=== PATIENT | male | born 1970 | race Two or more races ===

== ENCOUNTER 2019-10-29 20:55 | Inpatient (IN) | payer MEDICAID ==
[~2019-10-29] VITALS: Ht 165.1 cm; Wt 75.7 kg
--- NOTE | 2019-10-29 21:10 | NUR ---
PT BIBF C/O L SIDED PRESSURE CHEST PAIN RADIATING TO L SHOULDER X 3 DAYS. 08/29 PS. +SOB. PT AAOX4, VSS, RESPIRATIONS EVEN AND UNLABORED ON RA W/ NAD NOTED. PT CONNECTED TO THE COLLAR SHAPER OPERATOR AND POX.
--- NOTE | 2019-10-29 21:19 | NUR ---
BLOOD COLLECTED AND SENT TO LAB
[2019-10-29 21:21] LABS: BASOPHILS % (AUTO) 0.7 % (0.0-2.0); EOSINOPHILS % (AUTO) 1.7 % (0.0-6.0); HEMATOCRIT 47 % (39-51); HEMOGLOBIN 16.2 g/dL (13.5-17.5); LYMPHOCYTES # (AUTO) 2.2 /CMM (0.8-4.8); LYMPHOCYTES % (AUTO) 30.9 % (20.0-44.0); MEAN CORPUSCULAR HGB CONC 34 g/dl (31.0-36.0); MEAN CORPUSCULAR VOLUME 89 fL (80-96); MONOCYTES # (AUTO) 0.5 /CMM (0.1-1.30); MONOCYTES % (AUTO) 7.3 % (2.0-12.0); NEUTROPHILS # (AUTO) 4.3 /CMM (1.8-8.9); NEUTROPHILS % (AUTO) 59.4 % (43.0-81.0); PLATELET COUNT (AUTO) 219 /CMM (150-450); RED BLOOD CELL COUNT(AUTO) 5.29 MIL/uL (4.5-6.0); WHITE BLOOD COUNT (AUTO) 7.2 K/uL (4.3-11.0)
[2019-10-29] MEDS ORDERED: NITROGLYCERIN 0.4 MG/TAB BOTTLE ONE (21:26)
[2019-10-29] MEDS ORDERED: NITROGLYCERIN 0.4 MG/TAB BOTTLE SL ONE (21:30)
[2019-10-29 21:44] LABS: ALANINE AMINOTRANSFERASE 33 U/L (12-78); ALBUMIN 4.1 g/dL (3.4-5.0); ALKALINE PHOSPHATASE 49 U/L (46-116); ASPARTATE AMINOTRANSFERASE 20 U/L (15-37); B-TYPE NATRIURETIC PEPTIDE 51 PG/ML (0-125); BILIRUBIN,TOTAL 0.5 mg/dL (0.2-1.0); CALCIUM, SERUM 9.1 mg/dL (8.5-10.1); CARBON DIOXIDE 30 mmol/L (21-32); CHLORIDE 104 mmol/L (98-107); CREATININE 0.9 mg/dL (0.6-1.3); GLUCOSE 122 mg/dL (74-106); LIPASE 185 U/L (73-393); POTASSIUM 3.1 mmol/L (3.5-5.1); SODIUM SERUM 142 mmol/L (136-145); TOTAL PROTEIN, SERUM 7.4 g/dL (6.4-8.2); UREA NITROGEN, BLOOD 11 mg/dL (7-18)
--- NOTE | 2019-10-29 21:48 | NUR ---
PT UNRELIEVED W/ [address] NOLEN MADE AWARE
[2019-10-29] MEDS ORDERED: ONDANSETRON HCL/PF 4 MG/2 ML VIAL ONE (21:51)
[2019-10-29] MEDS ORDERED: POTASSIUM CHLORIDE 20 MEQ TAB.PRT.SR PO ONE (22:00)
[2019-10-29] MEDS ORDERED: MORPHINE SULFATE INJ 2 MG/ML DISP.SYRIN IV ONE (22:00)
[2019-10-29] MEDS ORDERED: ONDANSETRON HCL/PF - ER 4 MG/2 ML VIAL IV ONE (22:00)
[2019-10-29] MEDS ORDERED: PANTOPRAZOLE 40 MG VIAL IV ONE (22:00)
--- NOTE | 2019-10-29 22:06 | NUR ---
PT MEDICATED ORDERED
--- NOTE | 2019-10-29 22:45 | NUR ---
CALLED HOUSE SUP FOR TELE BED
--- NOTE | 2019-10-29 22:56 | NUR ---
REPORT GIVEN TO RACHANA ZEE FOR KYA
[2019-10-29] MEDS ORDERED: HYDROCODONE/APAP 5/325MG TABLET PO PRN (23:30)
[2019-10-29] MEDS ORDERED: ONDANSETRON HCL/PF 4 MG/2 ML VIAL IVP PRN (23:30)
[2019-10-29] MEDS ORDERED: MAGNESIUM HYDROXIDE 30 ML UDC PO PRN (23:30)
[2019-10-29] MEDS ORDERED: ACETAMINOPHEN 325 MG TABLET PO PRN (23:30)
[2019-10-29] MEDS ORDERED: Z GUARD REMEDY 2 OZ OINT TP PRN (23:30)
[2019-10-29] MEDS ORDERED: MAG HYDROX/AL HYDROX/SIMETH 30 ML UDC PO PRN (23:30)
[2019-10-29 23:45] VITALS: BP 120/83
--- NOTE | 2019-10-29 23:45 | NUR ---
ASSISTANT PLANT CONTROL OPERATOR NOTES PATIENT ARRIVED ON FLOOR AT 2345, PT WAS ABLE TO AMBULATE TO BED. PT IS ALERT AND ORIENTED X 4. [place] SPEAKING ONLY. BREATHING EVEN AND UNLABORED ON ROOM AIR. NO COMPLAINTS REGARDING CHEST PAIN. SHOWS NO SIGNS OF ACUTE RESPIRATORY DISTRESS. IV ON LAC 20G ITS CLEAN DRY AND INTACT. BELONGINGS CHECKLIST COMPLETED, AND SKIN ASSESSMENT COMPLETED. ORIENTED TO ROOM AND UNIT. SAFETY PRECAUTIONS IN PLACE. BED IN LOWEST POSITION, LOCKED, AND CALL LIGHT KEPT WITHIN REACH. WILL CONTINUE TO MONITOR.
[2019-10-30] VITALS: BP 120/83
[2019-10-30] MEDS: ASPIRIN 325 MG TABLET PO SCH ×2 (00:18→08:11)
[2019-10-30 03:24] LABS: CALCIUM, SERUM 8.5 mg/dL (8.5-10.1); CREATININE 0.9 mg/dL (0.6-1.3)
[2019-10-30 04:00] VITALS: BP 120/76
[2019-10-30 04:33] VITALS: BP 120/76
[2019-10-30 05:02] LABS: BASOPHILS % (AUTO) 0.5 % (0.0-2.0); EOSINOPHILS % (AUTO) 1.6 % (0.0-6.0); HEMATOCRIT 47 % (39-51); HEMOGLOBIN 15.7 g/dL (13.5-17.5); LYMPHOCYTES # (AUTO) 2.4 /CMM (0.8-4.8); LYMPHOCYTES % (AUTO) 30.5 % (20.0-44.0); MEAN CORPUSCULAR HGB CONC 34 g/dl (31.0-36.0); MEAN CORPUSCULAR VOLUME 90 fL (80-96); MONOCYTES # (AUTO) 0.6 /CMM (0.1-1.30); NEUTROPHILS # (AUTO) 4.9 /CMM (1.8-8.9); NEUTROPHILS % (AUTO) 60.4 % (43.0-81.0); PLATELET COUNT (AUTO) 220 /CMM (150-450); RED BLOOD CELL COUNT(AUTO) 5.15 MIL/uL (4.5-6.0)
--- NOTE | 2019-10-30 06:54 | NUR ---
AGRICULTURAL ENGINEER NOTES PT IN BED, ASLEEP, ALERT AND ORIENTED X 4. ESTON[place] SPEAKING ONLY. BREATHING EVEN AND UNLABORED ON ROOM AIR. NO COMPLAINTS REGARDING CHEST PAIN. SHOWS NO SIGNS OF ACUTE RESPIRATORY DISTRESS. IV ON LAC 20G ITS CLEAN DRY AND INTACT. TELE MONITOR SR. ALL DUE MEDICATIONS GIVEN. SAFETY PRECAUTIONS IN PLACE. BED IN LOWEST POSITION, LOCKED, AND CALL LIGHT KEPT WITHIN REACH. WILL ENDORSE TO ONCOMING NURSE
--- NOTE | 2019-10-30 07:45 | NUR ---
Tele/RN - Assessment Patient in bed awake, A/O x 4, no complaints overnight, afebrile, denies chest pain, tele shows SR, stable on room air, no c/o shortness of breath. Saline lock on the LAC with no signs of infiltration. Skin is intact, ambulates with steady gait. Labs reviewed, no critical results noted. Will continue with current medical management
--- NOTE | 2019-10-30 08:00 | NUR ---
Tele/RN - Cardio consult Seen and examined by Dr. Reid with order to d/c telemetry and transfer to [facility] with same orders. Consent for CT angiogram was signed by the patient.
[2019-10-30] MEDS ORDERED: IOHEXOL-350 100 ML VIAL IV ONE (08:11)
--- NOTE | 2019-10-30 08:11 | NUR ---
MS/RN - ASA ASA 325 mg was not administered due to pt received dose at 00:18 today.
[2019-10-30] MEDS ORDERED: IV NS 0.9% 250 ML IV ONE (08:12)
[2019-10-30 08:17] VITALS: BP 122/89
--- NOTE | 2019-10-30 08:20 | NUR ---
MS/RN - Notes Patient taken to procedure (CT angiogram) in no acute distress.
[2019-10-30] MEDS ORDERED: NITROGLYCERIN 0.4 MG/TAB BOTTLE ONE (08:25)
[2019-10-30] MEDS ORDERED: METOPROLOL TARTRATE INJ 5 MG/5 ML AMPUL ONE (08:26)
[2019-10-30 08:29] VITALS: BP 149/84
[2019-10-30] MEDS ORDERED: METOPROLOL TARTRATE INJ 5 MG/5 ML AMPUL IVP PRN (08:30)
[2019-10-30] MEDS ORDERED: NITROGLYCERIN 0.4 MG/TAB BOTTLE SL ONE (08:30)
--- NOTE | 2019-10-30 08:38 | NUR ---
Patient tolerated the CTA of the heart. VSS. Report given to RACHANA Miramontes for KYA.
--- NOTE | 2019-10-30 09:00 | NUR ---
MS/RN - Notes Patient returned to room in no acute distress.
--- NOTE | 2019-10-30 15:25 | NUR ---
MS/RN - Discharge Patient is alert and oriented throughout the shift, discharged home in stable condition, remain afebrile, denies chest pain, not in any form of distress, ambulatory with steady gait. Reviewed discharge instructions with patient and he verbalized full understanding of all teachings including medications and follow-up care with PCP within 1 week. Patient was advised to seek immediate medical attention for worsening symptoms, chest pain, shortness of breath, palpitations, abdominal pain/distention, intractable nausea and vomiting, diarrhea, weakness, or any other emergent concerns. All belongings with patient and he deny any missing items. Patient refused photos to be taken of skin, no breakdown. Saline lock removed on the LAC with catheter tip intact, no redness, no swelling noted at the site. Discharge paperwork signed and copies were given per protocol. Accompanied to the lobby and transported by private car.
== END 2019-10-30 15:30 | disposition home or self-care (01) | DRG 243 ==
LOC: ER 20:59 → TELE 23:25 → MED 10-30 09:41
PROVIDERS: ADMIT Internal Medicine; ATTEND Student in an Organized Health Care Education/Training Program
DX: K21.9 Gastro-esophageal reflux disease without esophagitis (principal); E87.6 Hypokalemia; F17.200 Nicotine dependence, unspecified, uncomplicated; R73.9 Hyperglycemia, unspecified; E78.5 Hyperlipidemia, unspecified
CPT/HCPCS: 36415; 71045-TC; 75574; 80048-TC; 80053-TC; 80061-TC; 83690-TC; 83880; 84484-TC; 85025-TC; 87081-TC; 93307-TC; C9113; C9803-CS; G0378; J2270; J2405; J3490; J7050; Q9967

== ENCOUNTER 2020-01-06 18:50 | Emergency (ER) | payer MEDICAID ==
[~2020-01-06] VITALS: Ht 167.6 cm; Wt 71.7 kg
--- NOTE | 2020-01-06 19:00 | NUR ---
pt bib self c/o SOB x 4 days 99% on room air. vs checked. awaiting md tyler.
--- NOTE | 2020-01-06 20:18 | NUR ---
Patient discharged to home in stable condition. Written and verbal after care instructions given. Patient verbalizes understanding of instruction.
[2020-01-06 23:04] VITALS: BP 142/90
== END 2020-01-06 20:18 | disposition home or self-care (01) ==
LOC: ER 18:51
DX: B34.9 Viral infection, unspecified (principal); R06.02 Shortness of breath; Z20.828 Contact with and (suspected) exposure to other viral communicable diseases; F17.219 Nicotine dependence, cigarettes, with unspecified nicotine-induced disorders; R03.0 Elevated blood-pressure reading, without diagnosis of hypertension
CPT/HCPCS: 71045; 99284; 99406; C9803; U0003